=== PATIENT | male | born 1975 | race Caucasian/White ===

== ENCOUNTER → 2020-11-25 | Outpatient (CLI) | payer BC, OTHER ==
[~2020-11-25] MED LIST: ALEVE220 M1 PO; ELIQUIS 2.5 MG2.5 MG PO; ELIQUIS2.5 MG PO; FAMOTIDINE40 MG PO; IBUPROFEN800 MG PO; LEG CRAMPS TAB PO; LEVOTHYROXINE75 MC1 PO; NORCO 10-325 T1 EACH PO; PERCOCET 10-321 EACH PO; VITAMIN B COMP1 EAC1 PO; VITAMIN C500 M4 PO; ZANTAC 150 MG150 MG PO; ZANTAC300 MG PO; ZETIA10 MG PO
[2020-11-25 09:47] LABS: RED BLOOD COUNT 5.12 M/UL (4.20-5.50)
[2020-11-25 10:12] LABS: BUN/CREATININE RATIO 9 (0-10)
== END ==
LOC: EDSTATUS 09:00 → OPSV2 09:00
PROVIDERS: Orthopaedic Surgery
DX: Z01.818 Encounter for other preprocedural examination (principal); M87.9 Osteonecrosis, unspecified; F17.200 Nicotine dependence, unspecified, uncomplicated
CPT/HCPCS: 36415; 71046; 80048; 81001; 85027; 87081; 93005

== ENCOUNTER → 2020-12-04 | Outpatient (CLI) | payer BC, OTHER ==
[2020-12-04 12:39] LABS: BUN/CREATININE RATIO 14 (0-10)
== END ==
LOC: LAB 10:57
PROVIDERS: Orthopaedic Surgery
DX: Z01.812 Encounter for preprocedural laboratory examination (principal); M87.051 Idiopathic aseptic necrosis of right femur; M06.9 Rheumatoid arthritis, unspecified
CPT/HCPCS: 36415; 80048; 86850; 86900; 86901

== ENCOUNTER 2020-12-05 07:04 | Day surgery (SDC) | payer BC, OTHER ==
[~2020-12-05] VITALS: Ht 188 cm; Wt 96.2 kg
[~2020-12-05 07:04] MED LIST changes: -ELIQUIS2.5 MG PO; -FAMOTIDINE40 MG PO; -LEG CRAMPS TAB PO; -LEVOTHYROXINE75 MC1 PO; -VITAMIN B COMP1 EAC1 PO; -VITAMIN C500 M4 PO; -ZETIA10 MG PO
[2020-12-05] MEDS ORDERED: ZETIA10 MG PO (07:50)
[2020-12-05] MEDS ORDERED: LEVOTHYROXINE75 MC1 PO (07:50)
[2020-12-05] MEDS ORDERED: FAMOTIDINE40 MG PO (07:50)
[2020-12-05] MEDS ORDERED: VITAMIN B COMP1 EAC1 PO (07:51)
[2020-12-05] MEDS ORDERED: VITAMIN C500 M4 PO (07:51)
[2020-12-05] MEDS ORDERED: LEG CRAMPS TAB PO (07:53)
[2020-12-05] MEDS ORDERED: ELIQUIS2.5 MG PO (08:19)
[2020-12-05] MEDS ORDERED: PERCOCET 10-321 EACH PO (08:19)
[2020-12-06 04:53] LABS: HEMOGLOBIN 12.9 gm/dl (14.0-17.5); RED BLOOD COUNT 4.11 M/UL (4.20-5.50); WHITE BLOOD COUNT 10.6 K/UL (4.5-11.0)
[2020-12-06 05:12] LABS: BUN/CREATININE RATIO 12 (0-10)
== END 2020-12-06 15:00 | disposition home or self-care (01) ==
LOC: OR 07:04 → EDSTATUS 08:15 → M/S 12:33 → OR 12-06 15:00
PROVIDERS: Orthopaedic Surgery
DX: M87.88 Other osteonecrosis, other site (principal); M16.11 Unilateral primary osteoarthritis, right hip; F17.210 Nicotine dependence, cigarettes, uncomplicated; K21.9 Gastro-esophageal reflux disease without esophagitis; E78.5 Hyperlipidemia, unspecified; E03.9 Hypothyroidism, unspecified; G89.18 Other acute postprocedural pain; Z79.899 Other long term (current) drug therapy; Z82.49 Family history of ischemic heart disease and other diseases of the circulatory system; Z80.1 Family history of malignant neoplasm of trachea, bronchus and lung
CPT/HCPCS: 36415; 73501; 73502; 76000; 80048; 85027; 97110-GP-CQ; 97116-GP-CQ; 97161; 97166; 97535; C1776; J0592; J0690; J1100; J2001; J2250; J2405; J2704; J2710; J2795; J3010; J3370; J7050; J7120